=== PATIENT | male | born 1985 | race Caucasian/White ===

== ENCOUNTER 2017-08-19 17:04 | Emergency (ER) | payer MEDICAID, OTHER ==
[~2017-08-19] VITALS: Ht 157.5 cm; Wt 80.0 kg
[2017-08-19 17:14] VITALS: Ht 157.5 cm; Wt 80.0 kg
[2017-08-19] MEDS ORDERED: IBUPROFEN 600 MG TAB PO ONE (18:30)
--- NOTE | 2017-08-19 21:01 | RADRPT ---
PROCEDURE: XR Chest. CLINICAL INDICATION: Runoff TECHNIQUE: Single frontal view of the chest was obtained COMPARISON: None FINDINGS: The heart and mediastinum are within normal limits. There is a right lower lobe infiltrate and small right pleural effusion. There is no pneumothorax. RPTAT: AA IMPRESSION: Right lower lobe infiltrate and small right pleural effusion. .Zachariah Villela MD, MD Date Time Electronically viewed and signed by .Zachariah Villela MD, MD on 08/19/2017 21:01 .S/
--- NOTE | 2017-08-19 21:08 | ERD ---
ER Documentation Chief Complaint Chief Complaint BODY ACHES, COUGH FEVER X 2 DAYS HPI This is a 31-year-old male presents to the ER with a cough, fever and body aches for the last 2 days. Patient states that he has chest pain whenever he coughs. He denies any shortness of breath. Patient denies any nausea or vomiting. Patient has been trying [id number] medications however they have not worked for him. He denies any drinking or smoking. He denies any IV drug use. ROS 12 point review of systems was done, all negative except per HPI. Medications Home Meds Active Scripts Promethazine Hcl* (Promethazine Hcl* Syrup) 6.25 Mg/5 Ml Syrup, 12.5 MG PO Q6H Y for COUGH, #120 ML Prov:JERRICA TERRY 08/19/17 Ibuprofen* (Motrin*) 600 Mg Tab, 600 MG PO Q6, #30 TAB Prov:JERRICA TERRY 08/19/17 Levofloxacin* (Levaquin*) 750 Mg Tablet, 750 MG PO DAILY for 5 Days, TAB Prov:JERRICA TERRY 08/19/17 Allergies Allergies: Coded Allergies: No Known Allergy (Unverified , 08/19/17) PMhx/Soc Medical and Surgical Hx: pt denies Medical Hx, pt denies Surgical Hx History of Surgery: No Anesthesia Reaction: No Hx Neurological Disorder: No Hx Respiratory Disorders: No Hx Cardiac Disorders: No Hx Psychiatric Problems: No Hx Miscellaneous Medical Probl: No Hx Alcohol Use: No Hx Substance Use: No Hx Tobacco Use: No Smoking Status: Never smoker Physical Exam Vitals Vital Signs Date Time Temp Pulse Resp B/P Pulse Ox O2 Delivery O2 Flow Rate FiO2 08/19/17 17:14 98.2 109 20 106/73 95 Physical Exam GENERAL: The patient is well-developed, well-nourished, in no acute distress. NECK: Cervical spine is non tender with no step off. Supple, no nuchal rigidity HEENT: Atraumatic. Pupils equal, round and reactive to light. Extraocular muscles are grossly intact. Conjunctivae pink, no discharge. Bilateral tympanic membranes are clear with no evidence of erythema, effusion or dulling of the light reflex. Tonsilar erythema with no exudates or uvular deviation. Clear rhinorrhea. RESPIRATORY: Clear to auscultation bilaterally. There are no rales, wheezes or rhonchi. HEART: Regular rate and rhythm. No murmurs, clicks, rubs or gallops. EXTREMITIES: No clubbing or cyanosis. Full range of motion. Grossly neurovascularly intact. NEUROLOGIC: Alert and oriented. Cranial nerves II through XII are intact. SKIN: There is no rash. The skin is warm and dry. Results 24 hrs Current Medications Medications (Trade) Dose Ordered Sig/Tory Route PRN Reason Start Time Stop Time Status Last Admin Dose Admin Ibuprofen (Motrin) 600 mg ONCE ONCE PO 08/19/17 18:30 08/19/17 18:31 DC 08/19/17 19:28 Acetaminophen (Tylenol Tab) 650 mg ONCE ONCE PO 08/19/17 21:30 08/19/17 21:32 DC Ceftriaxone Sodium (Rocephin) 1 gm ONCE ONCE IM 08/19/17 21:30 08/19/17 21:32 DC Lidocaine (Xylocaine 2% (Mdv) 20 ml) 20 ml ONCE ONCE INJ 08/19/17 21:30 08/19/17 21:32 DC [place] [id number] Radiology Main Line: [phone] DIAGNOSTIC IMAGING REPORT Patient: SHAAN RIOJAS : 1985 Age: 31 Sex: M MR #: [id number] DOS: 08/19/17 0000 Ordering MD: JERRICA TERRY PA-C Location: [facility] Room/Bed: PROCEDURE: XR Chest. CLINICAL INDICATION: Runoff TECHNIQUE: Single frontal view of the chest was obtained COMPARISON: None FINDINGS: The heart and mediastinum are within normal limits. There is a right lower lobe infiltrate and small right pleural effusion. There is no pneumothorax. RPTAT: AA IMPRESSION: Right lower lobe infiltrate and small right pleural effusion. .Zachariah Villela MD, Date Time Electronically viewed and signed by .Zachariah Villela MD, on 08/19/2017 21: 01 .S/ CC: JERRICA TERRY Procedures/MDM EKG was done [address] elevation no T-wave inversion. Is a 31-year-old male presents to the ER with cough and fever for the last 2 days. Patient does appear to have pneumonia with a small right pleural effusion. I discussed his case with my supervising physician Dr. Kauffman is stable for outpatient follow-up he is not hypoxic or in any respiratory distress and he is afebrile in the ER. Patient will be sent home with [facility]. I did give patient a shot of Rocephin here in the ER without any complications. He will also be given promethazine and ibuprofen. Patient was told to return to ER in 48 hours for recheck, patient does not have a primary care doctor and he should have follow-up for his pneumonia. He is to return to the ER sooner if symptoms worsen. My medical decision making shared with the patient he understands and agrees with plan. Departure Diagnosis: Primary Impression: Pneumonia Condition: Stable JERRICA TERRY Aug 19, 2017 21:07
[2017-08-19] MEDS ORDERED: LIDOCAINE 2% (MDV) 20 ML INJ INJ ONE (21:30)
[2017-08-19] MEDS ORDERED: ACETAMINOPHEN 325 MG TAB PO ONE (21:30)
[2017-08-19] MEDS ORDERED: CEFTRIAXONE 1 GM INJ IM ONE (21:30)
[2017-08-19] MEDS ORDERED: LEVO750T25 PO (21:32)
[2017-08-19] MEDS ORDERED: IBUP-1542 PO (21:37)
[2017-08-19] MEDS ORDERED: PROM6.25 PO (21:38)
[2017-08-19 22:18] VITALS: TEMP 96.9
== END 2017-08-19 22:18 | disposition home or self-care (01) ==
LOC: FTE 17:04
DX: J18.9 Pneumonia, unspecified organism (principal); R07.9 Chest pain, unspecified
CPT/HCPCS: 71010; 87400; 93005; 96372; J0696; Z7502; Z7610